=== PATIENT | male | born 1950 | race Asian ===

== ENCOUNTER 2019-02-19 09:24 | Outpatient (CLI) | payer OTHER ==
[2019-02-19 10:11] LABS: PLATELET COUNT 225 K/uL (142-355)
[2019-02-19 13:21] LABS: POTASSIUM 4.1 mmol/L (3.6-5.2)
== END 2019-02-19 19:16 | disposition home or self-care (01) ==
LOC: LABW 09:24
PROVIDERS: Family Medicine
DX: I12.9 Hypertensive chronic kidney disease with stage 1 through stage 4 chronic kidney disease, or unspecified chronic kidney disease (principal); N18.9 Chronic kidney disease, unspecified; E11.22 Type 2 diabetes mellitus with diabetic chronic kidney disease; M25.569 Pain in unspecified knee; E78.2 Mixed hyperlipidemia; N42.89 Other specified disorders of prostate
CPT/HCPCS: 36415; 80053; 80061; 81000; 82306; 83036; 84154; 84439; 84443; 84550; 85027; 87077; 87086; 87088; 87186

== ENCOUNTER 2019-07-19 09:47 | Outpatient (CLI) | payer OTHER ==
[2019-07-19 10:36] LABS: PLATELET COUNT 220 K/uL (142-355)
[2019-07-19 10:42] LABS: POTASSIUM 3.8 mmol/L (3.6-5.2)
== END 2019-07-19 22:24 | disposition home or self-care (01) ==
LOC: LABW 09:47
PROVIDERS: Family Medicine
DX: K92.1 Melena (principal); M54.5 Low back pain; M25.569 Pain in unspecified knee; Z87.19 Personal history of other diseases of the digestive system; Z79.899 Other long term (current) drug therapy
CPT/HCPCS: 36415; 80053; 81000; 84443; 85027

== ENCOUNTER 2019-08-09 08:47 | Outpatient (CLI) | payer OTHER ==
[2019-08-09 10:24] LABS: PLATELET COUNT 227 K/uL (142-355)
== END 2019-08-09 19:24 | disposition home or self-care (01) ==
LOC: LABW 08:47 → CT 09:00 → LABW 19:24
PROVIDERS: Family Medicine
DX: K92.1 Melena (principal); M54.5 Low back pain; M25.569 Pain in unspecified knee; Z87.19 Personal history of other diseases of the digestive system; R10.84 Generalized abdominal pain; E11.9 Type 2 diabetes mellitus without complications; Z79.899 Other long term (current) drug therapy; I10 Essential (primary) hypertension; D53.1 Other megaloblastic anemias, not elsewhere classified; E55.9 Vitamin D deficiency, unspecified; K21.9 Gastro-esophageal reflux disease without esophagitis; N40.0 Benign prostatic hyperplasia without lower urinary tract symptoms
CPT/HCPCS: 36415; 80061; 82306; 82607; 82746; 83036; 83540; 83550; 83735; 84154; 85027; Q9963

== ENCOUNTER 2020-01-20 15:32 | Emergency (ER) | payer OTHER ==
[~2020-01-20] VITALS: Ht 175.3 cm; Wt 153.3 kg
[2020-01-20] MEDS ORDERED: TAMS0.4C PO (15:46)
[2020-01-20] MEDS ORDERED: FURO40TA93 PO (15:46)
[2020-01-20] MEDS ORDERED: ACTOS15 MG PO (15:46)
[2020-01-20] MEDS ORDERED: MOBIC7.5 M1 PO (15:47)
[2020-01-20] MEDS ORDERED: POTA20TA4 PO (15:49)
[2020-01-20] MEDS ORDERED: PRAVACHOL20 MG PO (15:49)
[2020-01-20] MEDS ORDERED: EZET10TA13 PO (15:50)
[2020-01-20] MEDS ORDERED: FINA5TAB2 PO (15:50)
[2020-01-20] MEDS ORDERED: PANTOPRAZOLE 40MG TA PO (15:50)
[2020-01-20] MEDS ORDERED: LANTUS100 UNIT/M SC (15:51)
[2020-01-20] MEDS ORDERED: XALATAN0.005 % OP (15:51)
[2020-01-20 16:38] LABS: PLATELET COUNT 199 K/uL (142-355)
[2020-01-20 16:48] LABS: POTASSIUM 3.8 mmol/L (3.6-5.2); SODIUM 135 mmol/L (136-145)
[2020-01-20 19:45] VITALS: BP 113/57; TEMP 98.3
== END 2020-01-20 20:32 | disposition home or self-care (01) ==
LOC: ED 15:32
PROVIDERS: Family Medicine
DX: N39.0 Urinary tract infection, site not specified (principal); R91.8 Other nonspecific abnormal finding of lung field; R06.02 Shortness of breath; Z03.818 Encounter for observation for suspected exposure to other biological agents ruled out
CPT/HCPCS: 36415; 80053; 81000; 82550; 82553; 83605; 83880; 84484; 85027; 87040; 87077; 87086; 87088; 87186; 87635; 93005; 96365; 99284; J0696; U0002

== ENCOUNTER 2020-07-22 12:25 | Outpatient (CLI) | payer OTHER ==
[~2020-07-22 12:25] MED LIST: ACTOS15 MG PO; EZET10TA13 PO; FINA5TAB2 PO; FURO40TA93 PO; LANTUS100 UNIT/M SC; MOBIC7.5 M1 PO; PANTOPRAZOLE 40MG TA PO; POTA20TA4 PO; PRAVACHOL20 MG PO; TAMS0.4C PO; XALATAN0.005 % OP
[2020-07-22 14:04] LABS: PLATELET COUNT 204 K/uL (142-355)
[2020-07-22 14:21] LABS: POTASSIUM 3.9 mmol/L (3.6-5.2)
== END 2020-07-22 21:54 | disposition home or self-care (01) ==
LOC: LABW 12:25
PROVIDERS: Internal Medicine Medical Oncology
DX: C18.5 Malignant neoplasm of splenic flexure (principal); D64.89 Other specified anemias
CPT/HCPCS: 36415; 80053; 82378; 82728; 83540; 83550; 85027

== ENCOUNTER 2020-07-31 14:45 | Outpatient (CLI) | payer OTHER | END 2020-07-31 22:25 | disposition home or self-care (01) | LOC: LAB 14:45 | PROVIDERS: ATTEND Family Medicine | DX: R19.7 Diarrhea, unspecified (principal); N18.9 Chronic kidney disease, unspecified; E11.9 Type 2 diabetes mellitus without complications; I12.9 Hypertensive chronic kidney disease with stage 1 through stage 4 chronic kidney disease, or unspecified chronic kidney disease | CPT/HCPCS: 82272; 87015; 87045; 87324; 87328; 87329; 87449; 87899 ==

== ENCOUNTER 2020-08-27 14:18 | Outpatient (CLI) | payer OTHER | END 2020-08-27 21:13 | disposition home or self-care (01) | LOC: LABW 14:18 | PROVIDERS: ATTEND Internal Medicine Cardiovascular Disease | DX: R60.0 Localized edema (principal) | CPT/HCPCS: 83880 ==

== ENCOUNTER 2020-09-01 10:08 | Outpatient (CLI) | payer OTHER | END 2020-09-01 21:56 | disposition home or self-care (01) | LOC: RESP 10:08 | PROVIDERS: ATTEND Internal Medicine Cardiovascular Disease | DX: I10 Essential (primary) hypertension (principal); R60.0 Localized edema; E11.59 Type 2 diabetes mellitus with other circulatory complications ==

== ENCOUNTER 2020-10-27 12:27 | Outpatient (CLI) | payer OTHER ==
[2020-10-27 13:04] LABS: PLATELET COUNT 269 K/uL (142-355)
[2020-10-27 13:55] LABS: POTASSIUM 3.9 mmol/L (3.6-5.2)
== END 2020-10-27 19:43 | disposition home or self-care (01) ==
LOC: LABW 12:27
PROVIDERS: ATTEND Family Medicine
DX: R60.0 Localized edema (principal); S81.802A Unspecified open wound, left lower leg, initial encounter; S81.801A Unspecified open wound, right lower leg, initial encounter; E11.9 Type 2 diabetes mellitus without complications; N18.9 Chronic kidney disease, unspecified; I50.9 Heart failure, unspecified; Z68.43 Body mass index [BMI] 50.0-59.9, adult; N42.9 Disorder of prostate, unspecified
CPT/HCPCS: 36415; 80053; 80061; 81000; 82306; 83036; 83880; 84153; 84439; 84443; 85027

== ENCOUNTER 2020-11-04 19:31 | Outpatient (CLI) | payer OTHER | END 2020-11-04 22:10 | disposition home or self-care (01) | LOC: LABW 19:31 → LAB 19:31 → LABW 22:10 | PROVIDERS: ATTEND Family Medicine | DX: R19.7 Diarrhea, unspecified (principal) | CPT/HCPCS: 82272; 87015; 87045; 87324; 87328; 87329; 87449; 87899 ==

== ENCOUNTER 2020-11-19 12:27 | Outpatient (CLI) | payer OTHER ==
[2020-11-19 13:15] LABS: PLATELET COUNT 229 K/uL (142-355)
== END 2020-11-19 21:52 | disposition home or self-care (01) ==
LOC: LABW 12:27
PROVIDERS: ATTEND Nurse Practitioner Adult Health
DX: C18.5 Malignant neoplasm of splenic flexure (principal); D64.89 Other specified anemias
CPT/HCPCS: 36415; 80053; 82378; 82728; 84100; 85027; 85044

== ENCOUNTER 2021-05-20 10:07 | Outpatient (CLI) | payer OTHER ==
[2021-05-20 10:52] LABS: PLATELET COUNT 262 K/uL (142-355)
[2021-05-20 11:18] LABS: POTASSIUM 4.4 mmol/L (3.6-5.2)
== END 2021-05-20 22:13 | disposition home or self-care (01) ==
LOC: LABW 10:07
PROVIDERS: ATTEND Internal Medicine Hematology & Oncology
DX: C18.5 Malignant neoplasm of splenic flexure (principal); D64.89 Other specified anemias; I50.9 Heart failure, unspecified; E11.65 Type 2 diabetes mellitus with hyperglycemia; N18.9 Chronic kidney disease, unspecified; E78.2 Mixed hyperlipidemia; E55.9 Vitamin D deficiency, unspecified; N42.89 Other specified disorders of prostate; I12.9 Hypertensive chronic kidney disease with stage 1 through stage 4 chronic kidney disease, or unspecified chronic kidney disease
CPT/HCPCS: 36415; 80053; 80061; 81000; 82306; 82728; 83036; 83540; 83550; 83880; 84154; 84443; 85027; 87077; 87086; 87088; 87186

== ENCOUNTER 2022-12-29 10:01 | Outpatient (CLI) | payer OTHER ==
[2022-12-29 10:54] LABS: PLATELET COUNT 244 K/uL (142-355)
[2022-12-29 11:12] LABS: POTASSIUM 4.2 mmol/L (3.6-5.2)
== END 2022-12-29 20:49 | disposition home or self-care (01) ==
LOC: LABW 10:01
PROVIDERS: ATTEND Family Medicine
DX: G89.4 Chronic pain syndrome (principal); I50.9 Heart failure, unspecified; N18.9 Chronic kidney disease, unspecified; R53.83 Other fatigue; E78.2 Mixed hyperlipidemia; E11.9 Type 2 diabetes mellitus without complications; R01.1 Cardiac murmur, unspecified; E55.9 Vitamin D deficiency, unspecified; R35.1 Nocturia
CPT/HCPCS: 36415; 80053; 80061; 81000; 82306; 83036; 83735; 84154; 84439; 84443; 84550; 85027; 87077; 87086; 87088; 87186